=== PATIENT | male | born 1980 | race Caucasian/White ===

== ENCOUNTER 2017-10-21 21:47 | Emergency (ER) | payer OTHER ==
[2017-10-21] MEDS: ONDANSETRON (ODT) 4 MG TAB ODT (23:08)
[2017-10-21] MEDS: HYDROmorphONE 1 MG/ML SYG IM (23:09)
[2017-10-22] MEDS: HYDROmorphONE 1 MG/ML SYG IM (00:19)
[2017-10-22] MEDS: HYDROmorphONE 1 MG/ML SYG IV (00:25)
[2017-10-22] MEDS: KETOROLAC 30 MG INJ IV (00:25)
[2017-10-22] MEDS: KETOROLAC 60 MG INJ IM (00:26)
== END 2017-10-22 01:20 | disposition home or self-care (01) ==
LOC: E/R 10-22 01:20
DX: M51.06 Intervertebral disc disorders with myelopathy, lumbar region (principal)
CPT/HCPCS: 72131; 96372; 99285-25

== ENCOUNTER 2017-12-14 21:42 | Emergency (ER) | payer OTHER ==
[2017-12-15] MEDS: LORAZEPAM 2 MG INJ IV (02:47)
[2017-12-15] MEDS: SOD CHLORIDE 0.9% 1,000 ML IV (02:47)
[2017-12-15 03:22] LABS: ADD MAN DIFF? NO
[2017-12-15 03:30] LABS: BASOPHILS % 0.4 % (0.0-2.0); EOSINOPHILS # 0.1 10^3/ul (0.0-0.5); EOSINOPHILS % 0.5 % (0.0-7.0); HEMATOCRIT 38.2 % (42.0-52.0); HEMOGLOBIN 13.9 g/dl (14.0-18.0); LYMPHOCYTES # 2.5 10^3/ul (0.8-2.9); LYMPHOCYTES % 23.9 % (15.0-51.0); MEAN CORPUSCULAR HGB CONC 36.4 g/dl (32.0-37.0); MEAN CORPUSCULAR VOLUME 85.1 fl (82.0-101.0); MEAN PLATELET VOLUME 10.4 fl (7.4-10.4); MONOCYTES % 9.4 % (0.0-11.0); NEUTROPHIL # 6.7 10^3/ul (1.6-7.5); NEUTROPHILS % 65.4 % (39.0-77.0); PLATELET COUNT 218 10^3/UL (140-415); RED BLOOD COUNT 4.49 10^6/ul (4.70-6.10); RED CELL DISTRIBUTION WIDTH 11.5 % (11.5-14.5)
[2017-12-15 03:30] LABS: WHITE BLOOD COUNT 10.3 10^3/ul (4.8-10.8)
[2017-12-15 03:44] LABS: ALANINE AMINOTRANSFERASE 48 IU/L (13-69); ALBUMIN 4.3 g/dl (3.3-4.9); ALBUMIN/GLOBULIN RATIO 1.48; ALKALINE PHOSPHATASE 56 IU/L (42-121); ANION GAP 19 (8-16); ASPARTATE AMINO TRANSFERASE 28 IU/L (15-46); BILIRUBIN,INDIRECT 0.7 mg/dl (0-1.1); BILIRUBIN,TOTAL 0.7 mg/dl (0.2-1.3); BLOOD UREA NITROGEN 9 mg/dl (7-20); CALCIUM 9.6 mg/dl (8.4-10.2); CARBON DIOXIDE 28 mmol/L (21-31); CHLORIDE 101 mmol/L (97-110); CREATININE 0.63 mg/dl (0.61-1.24); GLUCOSE 89 mg/dl (70-220); LIPASE 199 U/L (23-300); POTASSIUM 3.2 mmol/L (3.5-5.1); SODIUM 145 mmol/L (135-144); TOTAL PROTEIN 7.2 g/dl (6.1-8.1)
== END 2017-12-15 05:56 | disposition home or self-care (01) ==
LOC: E/R 21:42
DX: R51 Headache (principal)
CPT/HCPCS: 80053; 83690; 85025; 93005